=== PATIENT | female | born 1995 | race Caucasian/White ===

== ENCOUNTER 2016-07-04 18:09 | Emergency (ER) | payer MEDICAID ==
[~2016-07-04] VITALS: Ht 160 cm; Wt 68.0 kg
[2016-07-04 18:40] VITALS: BP_SYST 159
--- NOTE | 2016-07-04 18:50 | NUR ---
Patient to ER bed 8 to gown for evaluation. Side rails up. Report given to Shanthi ZAMAN.
--- NOTE | 2016-07-04 18:55 | NUR ---
C/O cough x 2 weeks with left frontal headache. Patient had nausea and vomiting x 10, diarrhea many times last night. Patient feels weak and dizzy
--- NOTE | 2016-07-04 19:35 | NUR ---
DR. MICHEL AT BEDSIDE EXAMINING THE PT.
[2016-07-04] MEDS ORDERED: NACL 0.9% 1,000 ML IV ONE (19:52)
[2016-07-04] MEDS ORDERED: PROMETHAZINE 6.25 MG/ CODEINE 10 MG/ 5 ML PO ONE (20:00)
--- NOTE | 2016-07-04 20:30 | NUR ---
INFLUENZA A B SWAB SENT TO THE LAB
--- NOTE | 2016-07-04 21:00 | NUR ---
IV FLUIS RUNNING NO INFILTRATION NOTED, PT. TO BE DISCHARGED AFTER 1000 ML FLUID ADMINISTRATION PER MD ORDERS
--- NOTE | 2016-07-04 21:49 | NUR ---
Patient given written and verbal discharge instructions and verbalizes understanding. ER MD DR. MICHEL discussed with patient the results and treatment provided. Patient in stable condition. ID arm band removed. NO Rx given. Patient educated on pain management and to follow up with PMD. Pain Scale 0/10 Opportunity for questions provided and answered.
[2016-07-04 21:50] VITALS: BP_SYST 127
== END 2016-07-04 21:50 | disposition home or self-care (01) ==
LOC: SED 18:09
DX: B34.9 Viral infection, unspecified (principal)
CPT/HCPCS: 36415; 71010; 86710; 96360; 99285; J7030